=== PATIENT | female | born 1980 | race Caucasian/White ===

== ENCOUNTER 2016-07-16 22:03 | Emergency (ER) | payer OTHER ==
[~2016-07-16 22:03] MED LIST: NO MEDICATIONS
[2016-07-16] MEDS ORDERED: KEFLEX500 M1 PO (23:00)
== END 2016-07-16 23:01 | disposition home or self-care (01) ==
LOC: SED 22:03
DX: S66.222A Laceration of extensor muscle, fascia and tendon of left thumb at wrist and hand level, initial encounter (principal); Z23 Encounter for immunization; Z86.14 Personal history of Methicillin resistant Staphylococcus aureus infection; W23.0XXA Caught, crushed, jammed, or pinched between moving objects, initial encounter; Y92.9 Unspecified place or not applicable; F17.200 Nicotine dependence, unspecified, uncomplicated
CPT/HCPCS: 12001; 90471; 90715; 99283